=== PATIENT | male | born 1945 | race Caucasian/White ===

== ENCOUNTER 2018-06-24 22:04 | Inpatient (IN) | payer MEDICARE, OTHER ==
[~2018-06-24] VITALS: Ht 175.3 cm; Wt 94.8 kg
[2018-06-24 22:33] LABS: BASO % 0.3 % (0.0-2.0); EOS # 0.1 (0.0-0.7); GRAN # 8.6 (1.4-6.5); GRAN % 73.7 % (42.2-75.2); HEMOGLOBIN 11.9 g/dl (13.5-18.0); LYMPH # 2.1 (1.2-3.4); LYMPH % 18.2 % (20.0-51.0); MEAN CELL VOLUME 90 fl (80.0-100.0); MEAN CORPUSCULAR HEMOGLOBIN 29 pg (27.0-31.0); MEAN CORPUSCULAR HGB CONC 32 g/dl (33.0-37.0); MEAN PLATELET VOLUME 9.6 fl (7.4-10.4); MONO # 0.7 (0.1-0.6); MONO % 6.2 % (1.7-9.3); PLATELET COUNT 229 K/mm3 (130-400); REDCELL DISTRIBUTION WIDTH-CV 13.1 % (11.5-14.5)
[2018-06-24 22:34] LABS: HEMATOCRIT 36.8 % (42.0-52.0)
[2018-06-24 22:44] LABS: ALANINE AMINOTRANSFERASE 22 U/L (21-72); ALBUMIN 3.3 gm/dL (3.5-5.0); ALKALINE PHOSPHATASE 39 U/L (50-136); ANION GAP 4 mmol/L (7-16); AST,SGOT 16 U/L (15-37); BILIRUBIN,TOTAL 0.4 mg/dL (0.0-1.0); BLOOD UREA NITROGEN 24 mg/dL (9-20); CALCIUM 8.1 mg/dL (8.4-10.2); CARBON DIOXIDE 28 mmol/L (22-30); CHLORIDE 105 mmol/L (98-107); CREATININE, serum 1.63 mg/dL (0.66-1.25); GLUCOSE 246 mg/dL (74-106); POTASSIUM 4.9 mmol/L (3.4-5.0); SODIUM 137 mmol/L (137-145); TOTAL PROTEIN 6.5 gm/dL (6.4-8.2)
[2018-06-24 22:55] LABS: TROPONIN-I < 0.012 ng/mL (0.000-0.034)
[2018-06-24] MEDS ORDERED: DIABETA 2.5MG2.5 MG PO (22:56)
[2018-06-24] MEDS ORDERED: GLUCOPHAGE500 MG/TAB PO (22:56)
[2018-06-24] MEDS ORDERED: NORVASC 5MG5 MG/TAB PO (22:56)
[2018-06-24] MEDS ORDERED: DIOVAN HCT 12.51 TA2 PO (22:56)
[2018-06-24] MEDS ORDERED: FERRO-TIME325 MG PO (22:57)
[2018-06-24] MEDS ORDERED: ASPIRIN 81M81 MG/TA2 PO (22:57)
[2018-06-25] VITALS (428 sets, daily range): BP systolic 117–142; BP diastolic 61–94; PULSE 61–92; TEMP 97.5–98; O2SAT 90–100
[2018-06-25 01:37] LABS: MAGNESIUM 1.9 mg/dL (1.6-2.3); PHOSPHOROUS 3.2 mg/dL (2.5-4.5)
[2018-06-25 01:56] LABS: PROTHROMBIN TIME 11.3 SECONDS (9.7-12.8)
[2018-06-25 01:59] LABS: PARTIAL THROMBOPLASTIN TIME 28.7 SECONDS (26.0-37.0)
[2018-06-25 02:25] LABS: TROPONIN-I 3 HR POST INITIAL < 0.012 ng/mL (0.000-0.034)
[2018-06-25 03:30] LABS: COLLECTION METHOD CLEAN CATCH
[2018-06-25 03:37] LABS: MUCOUS Present /lpf; PH 5 (5-8); SQUAMOUS EPITHELIAL 0-2 /hpf; URINE APPEARANCE Clear; URINE BACTERIA Rare /hpf; URINE BILIRUBIN Negative (NEGATIVE); URINE BLOOD Negative (NEGATIVE); URINE COLOR Yellow; URINE GLUCOSE 3+ (NEGATIVE); URINE KETONE Negative (NEGATIVE); URINE LEUKOCYTE ESTERASE 2+ (NEGATIVE); URINE NITRATE Negative (NEGATIVE); URINE PROTEIN(semi-quant) Negative (NEGATIVE); URINE UROBILINOGEN Negative (NEGATIVE)
[2018-06-25 05:00] LABS: BASO % 0.2 % (0.0-2.0); EOS % 0.1 % (0-4.0); GRAN # 7.5 (1.4-6.5); GRAN % 77.2 % (42.2-75.2); HEMOGLOBIN 10.6 g/dl (13.5-18.0); LYMPH # 1.6 (1.2-3.4); LYMPH % 16.8 % (20.0-51.0); MEAN CELL VOLUME 88 fl (80.0-100.0); MEAN CORPUSCULAR HEMOGLOBIN 29 pg (27.0-31.0); MEAN CORPUSCULAR HGB CONC 33 g/dl (33.0-37.0); MONO # 0.5 (0.1-0.6); MONO % 5.2 % (1.7-9.3); PLATELET COUNT 214 K/mm3 (130-400); RED BLOOD COUNT 3.61 M/mm3 (4.20-5.60); REDCELL DISTRIBUTION WIDTH-CV 13.2 % (11.5-14.5)
[2018-06-25 05:03] LABS: HEMATOCRIT 31.9 % (42.0-52.0)
[2018-06-25 05:19] LABS: ALANINE AMINOTRANSFERASE 22 U/L (21-72); ALBUMIN 3.1 gm/dL (3.5-5.0); ALKALINE PHOSPHATASE 34 U/L (50-136); ANION GAP 5 mmol/L (7-16); AST,SGOT 14 U/L (15-37); BILIRUBIN,TOTAL 0.4 mg/dL (0.0-1.0); BLOOD UREA NITROGEN 22 mg/dL (9-20); CALCIUM 7.8 mg/dL (8.4-10.2); CARBON DIOXIDE 25 mmol/L (22-30); CHLORIDE 109 mmol/L (98-107); CHOLESTEROL 149 mg/dL (120-200); CHOLESTEROL RISK RATIO 4.8; CREATININE, serum 1.21 mg/dL (0.66-1.25); GLUCOSE 231 mg/dL (74-106); HDL CHOLESTEROL 31 mg/dL; LDL CHOLESTEROL 98 mg/dL; POTASSIUM 4.6 mmol/L (3.4-5.0); SODIUM 138 mmol/L (137-145); TRIGLYCERIDE 101 mg/dL
[2018-06-25 05:37] LABS: TROPONIN-I 6 HR POST INITIAL < 0.012 ng/mL (0.000-0.034)
[2018-06-25 14:15] LABS: MEAN CELL VOLUME 90 fl (80.0-100.0); MEAN CORPUSCULAR HGB CONC 33 g/dl (33.0-37.0); PLATELET COUNT 200 K/mm3 (130-400); RED BLOOD COUNT 3.18 M/mm3 (4.20-5.60); REDCELL DISTRIBUTION WIDTH-CV 13.2 % (11.5-14.5)
[2018-06-25 14:16] LABS: HEMATOCRIT 28.5 % (42.0-52.0); HEMOGLOBIN 9.4 g/dl (13.5-18.0); MEAN CORPUSCULAR HEMOGLOBIN 30 pg (27.0-31.0)
[2018-06-25 22:03] LABS: MEAN CELL VOLUME 89 fl (80.0-100.0); MEAN CORPUSCULAR HGB CONC 33 g/dl (33.0-37.0); MEAN PLATELET VOLUME 10.1 fl (7.4-10.4); PLATELET COUNT 250 K/mm3 (130-400); RED BLOOD COUNT 3.36 M/mm3 (4.20-5.60); REDCELL DISTRIBUTION WIDTH-CV 13.4 % (11.5-14.5)
[2018-06-25 22:32] LABS: HEMOGLOBIN 9.8 g/dl (13.5-18.0); MEAN CORPUSCULAR HEMOGLOBIN 29 pg (27.0-31.0)
[2018-06-26] VITALS (7 sets, daily range): BP systolic 126–155; BP diastolic 56–75; PULSE 76–87; TEMP 97.7–98.5
[2018-06-26 06:22] LABS: BASO % 0.4 % (0.0-2.0); EOS # 0.2 (0.0-0.7); GRAN # 5.5 (1.4-6.5); GRAN % 57.9 % (42.2-75.2); LYMPH % 31.2 % (20.0-51.0); MEAN CELL VOLUME 90 fl (80.0-100.0); MEAN CORPUSCULAR HGB CONC 33 g/dl (33.0-37.0); MEAN PLATELET VOLUME 10.5 fl (7.4-10.4); MONO # 0.8 (0.1-0.6); MONO % 8.1 % (1.7-9.3); PLATELET COUNT 200 K/mm3 (130-400); RED BLOOD COUNT 2.81 M/mm3 (4.20-5.60); REDCELL DISTRIBUTION WIDTH-CV 13.5 % (11.5-14.5)
[2018-06-26 06:27] LABS: HEMATOCRIT 25.2 % (42.0-52.0); HEMOGLOBIN 8.2 g/dl (13.5-18.0); MEAN CORPUSCULAR HEMOGLOBIN 29 pg (27.0-31.0)
[2018-06-26 06:36] LABS: CALCIUM 7.2 mg/dL (8.4-10.2); CREATININE, serum 1.16 mg/dL (0.66-1.25); POTASSIUM 3.8 mmol/L (3.4-5.0)
[2018-06-27 03:56] VITALS: BP 153/44; PULSE 88
[2018-06-27 06:00] LABS: BASO % 0.5 % (0.0-2.0); EOS # 0.2 (0.0-0.7); EOS % 2.7 % (0-4.0); GRAN # 4.3 (1.4-6.5); GRAN % 55.6 % (42.2-75.2); LYMPH # 2.5 (1.2-3.4); LYMPH % 32.5 % (20.0-51.0); MEAN CELL VOLUME 89 fl (80.0-100.0); MEAN CORPUSCULAR HGB CONC 33 g/dl (33.0-37.0); MEAN PLATELET VOLUME 10.2 fl (7.4-10.4); MONO # 0.6 (0.1-0.6); MONO % 7.5 % (1.7-9.3); PLATELET COUNT 196 K/mm3 (130-400); RED BLOOD COUNT 2.64 M/mm3 (4.20-5.60); REDCELL DISTRIBUTION WIDTH-CV 13.6 % (11.5-14.5)
[2018-06-27 06:05] LABS: HEMATOCRIT 23.6 % (42.0-52.0); HEMOGLOBIN 7.8 g/dl (13.5-18.0); MEAN CORPUSCULAR HEMOGLOBIN 30 pg (27.0-31.0)
[2018-06-27 06:09] LABS: CALCIUM 7.5 mg/dL (8.4-10.2); CREATININE, serum 1.08 mg/dL (0.66-1.25); POTASSIUM 3.5 mmol/L (3.4-5.0)
[2018-06-27 08:39] VITALS: BP 153/61; PULSE 97; TEMP 98.3
[2018-06-27 11:40] VITALS: BP 158/67; PULSE 89; TEMP 97.9
[2018-06-27 12:26] LABS: HEMOGLOBIN 8.1 g/dl (13.5-18.0)
== END 2018-06-27 15:16 | disposition home or self-care (01) | DRG 378 ==
LOC: COL.ER 22:04 → ICU 06-25 00:11 → MEDICAL 06-25 14:10
PROVIDERS: Emergency Medicine; Family Medicine; Hospitalist; Internal Medicine; Internal Medicine Gastroenterology; Nurse Practitioner Family; Physician Assistant
PROC: 0DJ08ZZ Inspection of Upper Intestinal Tract, Via Natural or Artificial Opening Endoscopic (ICD-10-PCS; principal; 2018-06-26 17:15)
PROC: 0DJD8ZZ Inspection of Lower Intestinal Tract, Via Natural or Artificial Opening Endoscopic (ICD-10-PCS; 2018-06-26 17:15)
DX: K57.31 Diverticulosis of large intestine without perforation or abscess with bleeding (principal); E87.2 Acidosis; N17.9 Acute kidney failure, unspecified; K92.1 Melena; E11.9 Type 2 diabetes mellitus without complications; N18.9 Chronic kidney disease, unspecified; I25.119 Atherosclerotic heart disease of native coronary artery with unspecified angina pectoris; I12.9 Hypertensive chronic kidney disease with stage 1 through stage 4 chronic kidney disease, or unspecified chronic kidney disease; Z87.891 Personal history of nicotine dependence; K86.9 Disease of pancreas, unspecified; D50.0 Iron deficiency anemia secondary to blood loss (chronic)
CPT/HCPCS: 99232-AI; 99239; A9502; C9113; J1815; J2704; J2785; J3010; J7030; Q9967

== ENCOUNTER → 2018-10-21 | Outpatient (CLI) | payer MEDICARE ==
[~2018-10-21] MED LIST: ASPIRIN 81M81 MG/TA2 PO; DIABETA 2.5MG2.5 MG PO; DIOVAN HCT 12.51 TA2 PO; FERRO-TIME325 MG PO; GLUCOPHAGE500 MG/TAB PO; NORVASC 5MG5 MG/TAB PO
== END ==
LOC: COL.RAD 07:43
DX: K92.1 Melena (principal); E11.9 Type 2 diabetes mellitus without complications; D64.9 Anemia, unspecified; R93.5 Abnormal findings on diagnostic imaging of other abdominal regions, including retroperitoneum; K80.20 Calculus of gallbladder without cholecystitis without obstruction; K86.2 Cyst of pancreas
CPT/HCPCS: Q9967

== ENCOUNTER → 2019-02-08 | Outpatient (CLI) | payer MEDICARE | LOC: COL.RAD 10:22 | DX: Z01.810 Encounter for preprocedural cardiovascular examination (principal); D3A.8 Other benign neuroendocrine tumors; I34.0 Nonrheumatic mitral (valve) insufficiency; K80.20 Calculus of gallbladder without cholecystitis without obstruction; N40.0 Benign prostatic hyperplasia without lower urinary tract symptoms | CPT/HCPCS: Q9967 ==

== ENCOUNTER → 2019-08-02 | Outpatient (CLI) | payer MEDICARE | LOC: COL.RAD 07:58 | DX: Z01.812 Encounter for preprocedural laboratory examination (principal); D3A.8 Other benign neuroendocrine tumors; Z98.890 Other specified postprocedural states | CPT/HCPCS: Q9967 ==

== ENCOUNTER → 2020-09-19 | Outpatient (CLI) | payer MEDICARE | LOC: COL.RAD 08:00 | DX: N18.32 Chronic kidney disease, stage 3b (principal) ==

== ENCOUNTER → 2021-03-08 | Outpatient (CLI) | payer MEDICARE | LOC: COL.LAB 08:22 | DX: Z01.812 Encounter for preprocedural laboratory examination (principal); D3A.8 Other benign neuroendocrine tumors; E11.9 Type 2 diabetes mellitus without complications; R11.2 Nausea with vomiting, unspecified ==

== ENCOUNTER 2021-10-16 11:05 | Inpatient (IN) | payer MEDICARE ==
[~2021-10-16] VITALS: Ht 170.2 cm; Wt 75.0 kg
[2021-10-16 11:35] LABS: BASO % 0.2 % (0.0-2.0); GRAN # 3.8 K/mm3 (1.4-6.5); GRAN % 76.8 % (42.2-75.2); LYMPH # 0.6 K/mm3 (1.2-3.4); LYMPH % 12.2 % (20.0-51.0); MEAN CELL VOLUME 84 fl (80.0-100.0); MEAN CORPUSCULAR HGB CONC 33 g/dl (33.0-37.0); MONO # 0.5 K/mm3 (0.1-0.6); MONO % 10.2 % (1.7-9.3); PLATELET COUNT 153 K/mm3 (130-400); RED BLOOD COUNT 3.34 M/mm3 (4.20-5.60); REDCELL DISTRIBUTION WIDTH-CV 13.5 % (11.5-14.5)
[2021-10-16 11:41] LABS: HEMATOCRIT 28.2 % (42.0-52.0); HEMOGLOBIN 9.4 g/dl (13.5-18.0); MEAN CORPUSCULAR HEMOGLOBIN 28 pg (27-31)
[2021-10-16 12:42] LABS: ALBUMIN 2.8 gm/dL (3.4-4.8); BILIRUBIN,TOTAL 0.6 mg/dL (0.2-1.2); CREATININE, serum 3.48 mg/dL (0.72-1.25); POTASSIUM 4.3 mmol/L (3.5-4.5); TOTAL PROTEIN 6.7 gm/dL (6.2-8.1)
[2021-10-16] MEDS ORDERED: HYZAAR 12.5 MG-1 TAB PO (13:02)
[2021-10-16] MEDS ORDERED: PROTONIX 40MG T40 MG PO (13:03)
[2021-10-16] MEDS ORDERED: MULTI-VITAMIN W1 TA2 PO (13:04)
[2021-10-16 13:07] LABS: TROPONIN-I 0.07 ng/mL (0.00-0.033)
[2021-10-16] MEDS ORDERED: CARAFATE 1GM1 G PO (13:10)
[2021-10-16] MEDS ORDERED: MIRAPEX0.5 MG PO (13:16)
[2021-10-16] MEDS ORDERED: TOPROL XL 25MG25 MG PO (13:17)
[2021-10-16] MEDS ORDERED: FLOMAX 0.40.4 MG/CAP PO (13:19)
[2021-10-16] MEDS ORDERED: GAVISCON ESRF360 ML PO (13:21)
[2021-10-16] MEDS ORDERED: COMPAZINE 5MG TA5 MG (13:27)
[2021-10-16 16:37] LABS: CREATININE, serum 3.2 mg/dL (0.72-1.25); FRACTIONAL EXCRETION OF NA+ 2.46 %
[2021-10-16 17:27] VITALS: BP 127/68; PULSE 61; TEMP 97.2
--- NOTE | 2021-10-16 18:45 | NUR ---
PT HAD UNEVENTFUL DAY. GI PANEL WAS COLLECTED WELL A URINE FOR A FENA. PT REMAINS ON 2L O2, DENIES ANY PAIN. THE PATIENT DID HAVE 1 BOUT OF DIARRHEA REPORT WILL BE GIVEN TO CONTRACT CLERK AUTOMOBILE RN.
--- NOTE | 2021-10-16 20:00 | NUR ---
Patient is sleeping in bed, easily arousable. Alert and oriented x 4, hard of hearing. VS with HTN. Denies, nausea, vomiting. Has recurrent diarrhea. No fevers. 2L O2 NC. Receiving NS at 75ml/hr. Assessment completed, medications provided. No furhter needs at this time. Call light within reach.
[2021-10-16 20:26] VITALS: BP 106/54; PULSE 52; TEMP 98.4
[2021-10-17 00:52] VITALS: BP 165/80; PULSE 60; TEMP 98.3
[2021-10-17 04:34] VITALS: BP 132/50; PULSE 62; TEMP 98
[2021-10-17 06:40] LABS: GRAN # 3.7 K/mm3 (1.4-6.5); GRAN % 78.5 % (42.2-75.2); LYMPH # 0.7 K/mm3 (1.2-3.4); LYMPH % 14.8 % (20.0-51.0); MEAN CORPUSCULAR HGB CONC 32 g/dl (33.0-37.0); MEAN PLATELET VOLUME 9.9 fl (7.4-10.4); MONO # 0.3 K/mm3 (0.1-0.6); MONO % 5.9 % (1.7-9.3); PLATELET COUNT 162 K/mm3 (130-400); RED BLOOD COUNT 3.46 M/mm3 (4.20-5.60); REDCELL DISTRIBUTION WIDTH-CV 13.9 % (11.5-14.5)
[2021-10-17 06:49] LABS: HEMATOCRIT 30.9 % (42.0-52.0); HEMOGLOBIN 9.8 g/dl (13.5-18.0); MEAN CELL VOLUME 89 fl (80.0-100.0); MEAN CORPUSCULAR HEMOGLOBIN 28 pg (27-31)
--- NOTE | 2021-10-17 06:56 | NUR ---
Pt has had a calm night. Right now RT reduced O2 to 1L. Continues with diarrhea. No nausea, vomiting, or fever. Receiving NS 75ML/HR. Report will be given to day RN.
[2021-10-17 07:01] LABS: TROPONIN-I 0.039 ng/mL (0.00-0.033)
[2021-10-17 07:09] LABS: CALCIUM 8.1 mg/dL (8.4-10.2); CREATININE, serum 3.11 mg/dL (0.72-1.25)
[2021-10-17 07:59] VITALS: BP 145/60; PULSE 85; TEMP 97.4
[2021-10-17 16:45] VITALS: BP 167/64; PULSE 57; TEMP 97.5
--- NOTE | 2021-10-17 19:41 | NUR ---
PT HAD UNEVENTFUL DAY. OFF O2 SATURATION AT 97% RA
[2021-10-17 20:15] VITALS: BP 154/66; PULSE 78; TEMP 97.8
--- NOTE | 2021-10-17 21:49 | NUR ---
ALERT AND OX4. DENIES SOA, CHEST PAIN OR DIZZY. NS RUNNING AT 75ML/HR. ADA W 1500F RESTRICT FOLLOWED. POC DISCUSSED. BS TX PER ORDER. CALL LIGHT WI REACH.
[2021-10-18 00:12] VITALS: BP 161/62; PULSE 63; TEMP 98.2
--- NOTE | 2021-10-18 01:42 | NUR ---
REPORTED POSITIVE OCCULT STOOL TO MAGO, ORDERS PLACED, GI WILL BE CONSULTED. HEPARIN NOT GIVEN AT 0000 DOSE. ON HOLD FOR NOW. PROTONIX IV STARTED. PT WILL BE UPDATED.
[2021-10-18 03:37] LABS: COLLECTION METHOD CLEAN CATCH
[2021-10-18 03:44] LABS: MUCOUS Present (NOT PRESENT); PH 5 (5-8); SQUAMOUS EPITHELIAL 0-2 /hpf (0-10); URINE APPEARANCE Hazy (CLEAR/HAZY); URINE BACTERIA Rare /hpf (NONE SEEN); URINE BILIRUBIN Negative (NEGATIVE); URINE BLOOD 2+ (NEGATIVE); URINE COLOR Yellow (YELLOW); URINE GLUCOSE 3+ (NEGATIVE); URINE KETONE Negative (NEGATIVE); URINE LEUKOCYTE ESTERASE Negative (NEGATIVE); URINE NITRATE Negative (NEGATIVE); URINE PROTEIN(semi-quant) 2+ (NEGATIVE); URINE RBC 0-2 /hpf (0-2); URINE UROBILINOGEN Negative (NEGATIVE); URINE WBC 0-2 /hpf (0-2)
--- NOTE | 2021-10-18 05:06 | NUR ---
PT WAS UPDATED ON STOOL OCCULT POSITIVE OVERNIGHT. HE HAD A BM THIS AM NOW BELIEVES HE SEES BLOOD IN HIS STOOL. BROWN LOOSE, VERY SMALL MININUET IF ANY SEEN IN STOOL. HAS NOT SLEPT ALL NIGHT D/T RLS INSPITE OF GIVEN MIRPEX . PT QUESTIONS WHAT WE ARE GOING TO DO ABOUT BLOODY STOOLS. INFORMED AGAIN WILL CONTACT GI DOCTOR.
[2021-10-18 05:23] VITALS: BP 164/73; PULSE 72; TEMP 98.5
--- NOTE | 2021-10-18 06:23 | NUR ---
NOTIFIED DR HOWARD OF PT CONSULT- CURRENT HEMOGLOBIN. POSITIVE OCCULT. NO BLOOD STOOL SEEN THIS AM AND PT DENIES SYMPTOMS, UNKNOWN WHEN IF SCOPE DONE IN PAST.
[2021-10-18 07:44] VITALS: BP 162/67; PULSE 83; TEMP 98.3
--- NOTE | 2021-10-18 09:44 | NUR ---
PT ASSESSED. NO COMPLAINTS OF PAIN OR DYSPNEA. NO SIGNS OR SYMPTOMS OF DISTRESS. CALL LIGHT WITHIN REACH.
[2021-10-18 09:52] LABS: MEAN CELL VOLUME 88 fl (80.0-100.0); MEAN CORPUSCULAR HEMOGLOBIN 29 pg (27-31); MEAN CORPUSCULAR HGB CONC 33 g/dl (33.0-37.0); MEAN PLATELET VOLUME 10.4 fl (7.4-10.4); PLATELET COUNT 221 K/mm3 (130-400); RED BLOOD COUNT 3.86 M/mm3 (4.20-5.60)
[2021-10-18 09:58] LABS: HEMATOCRIT 33.8 % (42.0-52.0)
[2021-10-18 10:12] LABS: CALCIUM 8.3 mg/dL (8.4-10.2); CREATININE, serum 2.66 mg/dL (0.72-1.25); POTASSIUM 3.6 mmol/L (3.5-4.5)
[2021-10-18 11:32] VITALS: BP 150/78; PULSE 109; TEMP 97.9
[2021-10-18] MEDS ORDERED: DECADRON6 MG PO (12:13)
[2021-10-18] MEDS ORDERED: DOXYCYCLINE HY100 MG PO (12:14)
[2021-10-18] MEDS ORDERED: OMNICEF 300MG300 MG PO (12:14)
--- NOTE | 2021-10-18 14:33 | NUR ---
PT DISCHARGE TEACHING COMPLETE. ALL QUESTIONS ANSWERED. INFORMATION GIVEN ABOUT FOLLOW UP APPTS AND MEDICATIONS. NO OTHER CONCERNS AT THIS TIME. IV REMOVED
--- NOTE | 2021-10-18 14:46 | NUR ---
After several attempts at reaching patient by phone due to patient being in isolation for covid, Chemistry Specialist contacted patient's son, Deshawn Lerma (ph#[phone]) to complete initial intake. Patient lives with his life partner, Marcelle Ansari who is also admitted to the hospital at this time. Deshawn cofirmed that patient and Marcelle are not legally . Patient sees Dr. Kang for primary care and normally does not use any DME. Deshawn Lerma advised patient is normally independent with ADLS. Patient is not and has three children: Deshawn Lerma, Kong, and Andrea (ph#[phone]). SW was able to reach patient by phone to discuss home health. Patient is open to this and would like to use [facility]. Patient states his son, Andrea will pick him up today. SW contacted patient's son, Andrea who is agreeable to home with services. Andrea will picking belt operator patient later today. SW contacted Perla at [facility] and faxed referral and orders. Perla advised they can accept. Discharge Plan: Home with [facility]
--- NOTE | 2021-10-18 15:52 | NUR ---
Workday Consultant obtained DPOA-HC from Dr. Kang's office and placed it on patient's chart. Patient's partner, Marcelle and son, Wilver are designated.
[2021-10-18] MEDS ORDERED: GLUCOTROL XL2.5 MG PO (17:06)
== END 2021-10-18 13:00 | disposition home health service (06) | DRG 177 ==
LOC: COL.ER 11:05 → MEDICAL 12:29
PROVIDERS: Physician Assistant; Registered Nurse; ADMIT Internal Medicine
PROC: XW033E5 Introduction of Remdesivir Anti-infective into Peripheral Vein, Percutaneous Approach, New Technology Group 5 (ICD-10-PCS; principal; 2021-10-16)
DX: U07.1 COVID-19 (principal); J12.82 Pneumonia due to coronavirus disease 2019; J96.01 Acute respiratory failure with hypoxia; E87.2 Acidosis; N17.9 Acute kidney failure, unspecified; K21.9 Gastro-esophageal reflux disease without esophagitis; N18.9 Chronic kidney disease, unspecified; I12.9 Hypertensive chronic kidney disease with stage 1 through stage 4 chronic kidney disease, or unspecified chronic kidney disease; E11.22 Type 2 diabetes mellitus with diabetic chronic kidney disease; D64.9 Anemia, unspecified; G25.81 Restless legs syndrome; I48.0 Paroxysmal atrial fibrillation; Z87.891 Personal history of nicotine dependence; Z79.84 Long term (current) use of oral hypoglycemic drugs
CPT/HCPCS: 99223-AI; 99233-AI; 99239; C9113; J0248; J0696; J1100; J1644; J1815; J2405; J7030; J7050; J7120